=== PATIENT | male | born 1960 | race African-American/Black ===

== ENCOUNTER 2016-12-22 10:59 | Emergency (ER) | payer OTHER ==
[2016-12-22 11:05] VITALS: BP 172/99
--- NOTE | 2016-12-22 11:27 | ER Document Report ---
HPI - HPI Patient complains to provider of: burn to right volar forearm Onset: Just prior to arrival Quality of pain: Achy Pain Level: 4 Context: 56-year-old diabetic patient is concerned that the second degree burn in his right frontal forearm has not healed yet. He is keeping it dry. No fever or chills no pus or redness. Associated Symptoms: None Exacerbated by: Denies Relieved by: Denies Similar symptoms previously: No Recently seen / treated by doctor: No - ROS ROS below otherwise negative: Yes Systems Reviewed and Negative: Yes All other systems reviewed and negative - CARDIOVASCULAR Cardiovascular: DENIES: Chest pain - DERM Skin Color: Normal Past Medical History - General Information source: Patient - Social History Smoking Status: Never Smoker Chew tobacco use (# tins/day): No Frequency of alcohol use: Rare Drug Abuse: None Lives with: Family Family History: CAD, Hypertension Patient has suicidal ideation: No Patient has homicidal ideation: No - Past Medical History Cardiac Medical History: Reports: Hx Heart Attack, Hx Hypercholesterolemia, Hx Hypertension Pulmonary Medical History: Reports: Hx Asthma Neurological Medical History: Reports: Hx Seizures - hypoglycemia Endocrine Medical History: Reports: Hx Diabetes Mellitus Type 2 Renal/ Medical History: Denies: Hx Peritoneal Dialysis Musculoskeltal Medical History: Reports Hx Arthritis Past Surgical History: Reports: Hx Orthopedic Surgery - left knee and right knee - Immunizations Hx Diphtheria, Pertussis, Tetanus Vaccination: No Vertical Provider Document - CONSTITUTIONAL Agree With Documented VS: Yes Exam Limitations: No Limitations - INFECTION CONTROL TRAVEL OUTSIDE OF THE [place] IN LAST 30 DAYS: No - HEENT HEENT: Normocephalic - NECK Neck: Supple - RESPIRATORY O2 Sat by Pulse Oximetry: 99 - MUSCULOSKELETAL/EXTREMETIES Musculoskeletal/Extremeties: MAEW, FROM, Tender - Wound see below - NEURO Level of Consciousness: Awake, Alert, Appropriate - DERM Adult Front & Back Diagram: 1 - 3 x 5 healing, dry, 2nd degree burn , no lymphangitis Course - Vital Signs Vital signs: Temp Pulse Resp BP Pulse Ox 98.6 F 73 18 172/99 H 99 12/22/16 11:04 12/22/16 11:04 12/22/16 11:04 12/22/16 11:04 12/22/16 11:04 Discharge - Discharge Clinical Impression: healing right volar forearm burn Condition: Good Disposition: HOME, SELF-CARE Instructions: [facility] ([facility]) Additional Instructions: Use Vaseline to keep the wound moist non stick dressing to er any pus or increased red or fever Please complete the patient satisfaction survey if you get one, and return it.. If you do not receive a survey, then you can go to the [facility] website, [email or web address] and place your comments about your very good care. Thank you very much. It was a pleasure being your medical provider today.
== END 2016-12-22 11:35 | disposition home or self-care (01) ==
LOC: ER 10:59
DX: T22.211D Burn of second degree of right forearm, subsequent encounter (principal); X19.XXXD Contact with other heat and hot substances, subsequent encounter; E11.9 Type 2 diabetes mellitus without complications; I25.2 Old myocardial infarction; I10 Essential (primary) hypertension; J45.909 Unspecified asthma, uncomplicated
CPT/HCPCS: 99283

== ENCOUNTER 2017-01-13 12:22 | Emergency (ER) | payer OTHER ==
[2017-01-13 12:39] VITALS: BP 148/76
[2017-01-13] MEDS ORDERED: ACETAMINOPHEN 325 MG TABLET PO ONE (12:54)
--- NOTE | 2017-01-13 12:55 | ER Document Report ---
ED Hand/Wrist Injury - General Chief Complaint: Hand Injury Stated Complaint: LEFT HAND INJURY Time Seen by Provider: 01/13/17 12:44 Mode of Arrival: Ambulatory Information source: Patient TRAVEL OUTSIDE OF THE [place] IN LAST 30 DAYS: No - HPI Injury to: Hand Onset: Other - 2 days Where: [facility] Timing: Still present Quality of pain: Burning, Sharp, Throbbing Severity: Severe Pain Level: 5 Context: Blow - Punched a wall - Related Data Allergies/Adverse Reactions: ibuprofen Allergy (Verified 12/22/16 11:04) Past Medical History - General Information source: Patient - Social History Smoking Status: Never Smoker Cigarette use (# per day): No Chew tobacco use (# tins/day): No Smoking Education Provided: No Frequency of alcohol use: Occasional Drug Abuse: Marijuana Occupation: disabled Lives with: Family Family History: Arthritis, CAD, COPD, CVA, DM, Hyperlipidemia, Hypertension, Malignancy, Thyroid Disfunction - Past Medical History Cardiac Medical History: Reports: Hx Heart Attack, Hx Hypercholesterolemia, Hx Hypertension Pulmonary Medical History: Reports: Hx Asthma, Hx Bronchitis Neurological Medical History: Reports: Hx Seizures - hypoglycemia Endocrine Medical History: Reports: Hx Diabetes Mellitus Type 2 Renal/ Medical History: Reports: None Malignancy Medical History: Reports None GI Medical History: Reports: None Musculoskeltal Medical History: Reports Hx Arthritis, Reports Hx Musculoskeletal Deformity, Reports Hx Musculoskeletal Trauma Skin Medical History: Reports Hx MRSA Psychiatric Medical History: Reports: Hx Anxiety, Hx Depression, Hx Post Traumatic Stress Disorder Traumatic Medical History: Reports: Hx Fractures - Knee cap and fingers Infectious Medical History: Reports: Hx MRSA Past Surgical History: Reports: Hx Orthopedic Surgery - left knee and right knee and ankle surgery MRSA in the knee - Immunizations Hx Diphtheria, Pertussis, Tetanus Vaccination: No Review of Systems - Review of Systems Constitutional: No symptoms reported EENT: No symptoms reported Cardiovascular: No symptoms reported Respiratory: No symptoms reported Gastrointestinal: No symptoms reported Genitourinary: No symptoms reported Male Genitourinary: No symptoms reported Musculoskeletal: Other - pain and swelling left hand Skin: No symptoms reported Hematologic/Lymphatic: No symptoms reported Neurological/Psychological: No symptoms reported Physical Exam - Vital signs Vitals: Temp Pulse Resp BP Pulse Ox 98.0 F 75 18 148/76 H 98 01/13/17 12:37 01/13/17 12:37 01/13/17 12:37 01/13/17 12:37 01/13/17 12:37 Interpretation: Normal - General General appearance: Appears well, Alert - HEENT Head: Normocephalic, Atraumatic Eyes: Normal Pupils: PERRL - Respiratory Respiratory status: No respiratory distress Chest status: Nontender Breath sounds: Normal Chest palpation: Normal - Cardiovascular Rhythm: Regular Heart sounds: Normal auscultation Murmur: No - Abdominal Inspection: Normal Distension: No distension Bowel sounds: Normal Tenderness: Nontender Organomegaly: No organomegaly - Back Back: Normal, Nontender - Extremities General upper extremity: Normal color, Normal ROM, Normal temperature General lower extremity: Normal inspection, Nontender, Normal color, Normal ROM , Normal temperature, Normal weight bearing. No: Clarence's sign Hand: Tender, No evidence of human bite, No evidence of FB, Swelling - Neurological Neuro grossly intact: Yes Cognition: Normal Orientation: AAOx4 Farhaan Coma Scale Eye Opening: Spontaneous [place] Coma Scale Verbal: Oriented [place] Coma Scale Motor: Obeys Commands Farhana Coma Scale Total: 15 Speech: Normal Motor strength normal: LUE, RUE, LLE, RLE Sensory: Normal - Psychological Associated symptoms: Normal affect, Normal mood - Skin Skin Temperature: Warm Skin Moisture: Dry Skin Color: Normal Course - Re-evaluation Re-evalutation: 01/13/17 13:53 X-rays with patient and written report given to patient for follow-up with primary doctor. - Vital Signs Vital signs: Temp Pulse Resp BP Pulse Ox 98.0 F 75 18 148/76 H 98 01/13/17 12:37 01/13/17 12:37 01/13/17 12:37 01/13/17 12:37 01/13/17 12:37 - Diagnostic Test Radiology reviewed: Image reviewed, Reports reviewed Discharge - Discharge Clinical Impression: Contusion of left hand including fingers Qualifiers: Encounter type: initial encounter Qualified Code(s): S60.222A - Contusion of left hand, initial encounter; S60.00XA - Contusion of unspecified finger without damage to nail, initial encounter Condition: Stable Disposition: HOME, SELF-CARE Additional Instructions: CONTUSION: Your injury has resulted in a contusion -- a crushing of the deep tissues. No injury to important structures was detected during the physician's exam. Contusions vary in the amount of pain they cause, and in the length of time required for healing. Typically, the area will become bruised, and will remain painful to touch for two or three weeks. However, most patients are back to working and playing within a few days. After the initial period of rest and cold-packs, your symptoms (together with the doctor's recommendations) will determine how rapidly you can get back to full activity. Usually this means "do what feels okay, but don't do things that hurt." If re-examination was recommended, it's important to follow up as instructed. Call the doctor or return any time if pain increases, if swelling becomes severe, if you develop numbness or weakness in an injured extremity, or if any other alarming symptoms occur. USE OF TYLENOL (ACETAMINOPHEN): Acetaminophen may be taken for pain relief or fever control. It's much safer than aspirin, offering a wider range of "safe" dosages. It is safe during . Some brand names are Tylenol, Panadol, Datril, Anacin 3, Tempra, and Liquiprin. Acetaminophen can be repeated every four hours. The following are maximum recommended dosages: WEIGHT Dose Drops Elixir Chewable( 80mg) (LBS.) drprs=droppers tsp=teaspoon 6 40 mg 0.4 ml (1/2) 6-11 80 mg 0.8 ml (full) tsp 1 tab 12-16 120 mg 1 1/2 drprs 3/4 tsp 1 1/2 tabs 17-23 160 mg 2 drprs 1 tsp 2 tabs 24-30 240 mg 3 drprs 1 1/2 tsp 3 tabs 30-35 320 mg 2 tsp 4 tabs 36-41 360 mg 2 1/4 tsp 4 1/2 tabs 42-47 400 mg 2 1/2 tsp 5 tabs 48-53 480 mg 3 tsp 6 tabs 54-59 520 mg 3 1/4 tsp 6 1/2 tabs 60-64 560 mg 3 1/2 tsp 7 tabs 65-70 600 mg 3 3/4 tsp 7 1/2 tabs 71-76 640 mg 4 tsp 8 tabs 77-82 720 mg 4 1/2 tsp 9 tabs 83-88 800 mg 5 tsp 10 tabs >89 pounds or adults 650 mg to 900 mg Acetaminophen can be repeated every four hours. Maximum dose not to exceed 4000 mg a day. These maximum recommended dosages are slightly higher than the dosages written on the product container, but these dosages are very safe and below the toxic dosage for acetaminophen. ICE & ELEVATION: Apply ice packs frequently against the painful area. Many different schedules are recommended, such as "20 minutes on, 20 minutes off" or "one hour ice, two hours rest." If you need to work, you may need to go longer between ice treatments. You should plan to have the area ice packed AT LEAST one- fourth of the time. The ice should be applied over the wrap, tape, or splint, or over a layer of cloth -- not directly against the skin. Some ice bags have a built-in cloth and can be put directly on the skin. Your injured part should be elevated as much as possible over the next 48 hours. Try to keep the injury above the level of the heart. Avoid use of the injured area. Elevation and rest will decrease the swelling. FOLLOW-UP CARE: If you have been referred to a physician for follow-up care, call the physician s office for an appointment as you were instructed or within the next two days. If you experience worsening or a significant change in your symptoms, notify the physician immediately or return to the Emergency Department at any time for re-evaluation. Forms: Elevated Blood Pressure, Smoking Cessation Education Referrals: RAJ MCCORMACK MD [Primary Care Provider] - Follow up as needed DELMA DE PAZ DO [ACTIVE STAFF] - Follow up as needed
--- NOTE | 2017-01-13 13:16 | RADIOLOGY REPORT (SQ) ---
EXAM DESCRIPTION: HAND LEFT 3 VIEWS COMPLETED DATE/TIME: 01/13/2017 1:07 pm REASON FOR STUDY: punched wall COMPARISON: None. EXAM PARAMETERS: NUMBER OF VIEWS: Three views. TECHNIQUE: AP, lateral and oblique radiographic images acquired of the left hand. LIMITATIONS: None. FINDINGS: MINERALIZATION: Normal. BONES: No acute fracture or dislocation. No worrisome bone lesions. JOINTS: Fusion of the 4th DIP joint which may be posttraumatic or developmental. Articulations other chapman grossly maintained. SOFT TISSUES: No soft tissue swelling. No foreign body. OTHER: No other significant finding. IMPRESSION: NO RADIOGRAPHIC EVIDENCE OF ACUTE INJURY. TECHNICAL DOCUMENTATION: JOB ID: [id number] [email or web address]- All Rights Reserved
== END 2017-01-13 13:53 | disposition home or self-care (01) ==
LOC: ER 12:22
DX: S60.222A Contusion of left hand, initial encounter (principal); S60.00XA Contusion of unspecified finger without damage to nail, initial encounter; W22.01XA Walked into wall, initial encounter
CPT/HCPCS: 99283

== ENCOUNTER 2017-04-14 19:45 | Emergency (ER) | payer OTHER ==
--- NOTE | 2017-04-14 20:06 | ER Document Report ---
ED Medical Screen (RME) - General Chief Complaint: Shortness Of Breath Stated Complaint: SHORTNESS OF BREATH Time Seen by Provider: 04/14/17 20:05 Notes: Patient reports 2 days of heart palpitations headaches and elevated blood sugar with weakness. He denies any previous history of coronary artery disease. He states at one time he was told that he is borderline diabetic and was taking insulin but after losing weight he no longer required medication. TRAVEL OUTSIDE OF THE [place] IN LAST 30 DAYS: No - Related Data Allergies/Adverse Reactions: ibuprofen Allergy (Verified 12/22/16 11:04) Past Medical History - Past Medical History Cardiac Medical History: Reports: Hx Heart Attack, Hx Hypercholesterolemia, Hx Hypertension Pulmonary Medical History: Reports: Hx Asthma, Hx Bronchitis Neurological Medical History: Reports: Hx Seizures - hypoglycemia Endocrine Medical History: Reports: Hx Diabetes Mellitus Type 2 Renal/ Medical History: Denies: Hx Peritoneal Dialysis Musculoskeltal Medical History: Reports Hx Arthritis, Reports Hx Musculoskeletal Deformity, Reports Hx Musculoskeletal Trauma Skin Medical History: Reports Hx MRSA Psychiatric Medical History: Reports: Hx Anxiety, Hx Depression, Hx Post Traumatic Stress Disorder Traumatic Medical History: Reports: Hx Fractures - Knee cap and fingers Infectious Medical History: Reports: Hx MRSA Past Surgical History: Reports: Hx Orthopedic Surgery - left knee and right knee and ankle surgery MRSA in the knee - Immunizations Hx Diphtheria, Pertussis, Tetanus Vaccination: No Physical Exam - Vital signs Vitals: Temp Pulse Resp BP Pulse Ox 98.1 F 88 14 163/93 H 97 04/14/17 19:56 04/14/17 19:56 04/14/17 19:56 04/14/17 19:56 04/14/17 19:56 Course - Vital Signs Vital signs: Temp Pulse Resp BP Pulse Ox 98.1 F 88 14 163/93 H 97 04/14/17 19:56 04/14/17 19:56 04/14/17 19:56 04/14/17 19:56 04/14/17 19:56
[2017-04-14 20:47] LABS: ABSOLUTE BASOPHILS # (AUTO) 0.1 10^3/uL (0.0-0.2); ABSOLUTE EOSINOPHILS # (AUTO) 0.2 10^3/uL (0.0-0.6); ABSOLUTE LYMPHOCYTES (AUTO) 2.1 10^3/uL (0.5-4.7); ABSOLUTE NEUT (AUTO) 7.2 10^3/uL (1.7-8.2); BASOPHILS % (AUTO) 0.5 % (0-2); EOSINOPHILS % (AUTO) 1.8 % (0-6); HEMATOCRIT 38.9 % (37.9-51.0); HEMOGLOBIN 13.1 g/dL (13.5-17.0); HGB HCT DIFFERENCE 0.4; LYMPHOCYTES % (AUTO) 19.6 % (13-45); MEAN CORPUSCULAR HEMOGLOBIN 30.2 pg (27.0-33.4); MEAN CORPUSCULAR HGB CONC 33.7 g/dL (32.0-36.0); MEAN CORPUSCULAR VOLUME 90 fl (80-97); MONOCYTES % (AUTO) 9.3 % (3-13); RED BLOOD COUNT 4.33 10^6/uL (4.35-5.55); RED CELL DISTRIBUTION WIDTH 13.5 % (11.5-14.0); SEGMENTED NEUTROPHILS % (AUTO) 68.8 % (42-78); WHITE BLOOD COUNT 10.5 10^3/uL (4.0-10.5)
[2017-04-14 21:11] LABS: ALANINE AMINOTRANSFERASE 32 U/L (21-72); ALBUMIN 4.6 g/dL (3.5-5.0); ALKALINE PHOSPHATASE 87 U/L (38-126); ANION GAP 13 (5-19); ASPARTATE AMINO TRANSFERASE 28 U/L (17-59); BILIRUBIN,DIRECT 0.3 mg/dL (0.0-0.4); BILIRUBIN,TOTAL 0.8 mg/dL (0.2-1.3); BLOOD UREA NITROGEN 16 mg/dL (7-20); CALCIUM 10.3 mg/dL (8.4-10.2); CARBON DIOXIDE 26 mmol/L (22-30); CHLORIDE 102 mmol/L (98-107); CREATININE RESULT 1.26 mg/dL (0.52-1.25); GLUCOSE 105 mg/dL (75-110); POTASSIUM 3.9 mmol/L (3.6-5.0); SODIUM 141.3 mmol/L (137-145); TOTAL PROTEIN 7.7 g/dL (6.3-8.2)
--- NOTE | 2017-04-14 21:46 | ER Document Report ---
ED General - General Chief Complaint: Shortness Of Breath Stated Complaint: SHORTNESS OF BREATH Time Seen by Provider: 04/14/17 20:05 Mode of Arrival: Ambulatory Information source: Patient TRAVEL OUTSIDE OF THE [place] IN LAST 30 DAYS: No - HPI Patient complains to provider of: Elevated blood sugar with headache and palpitations Onset: Yesterday Quality of pain: Achy Severity: Mild Pain Level: 1 Notes: Patient is a 56-year-old male with a history of asthma, arthritis and Hebrew Westby syndrome, he has a previous history of diabetes, was never medicated but was able to lose weight and control his blood sugars through diet and exercise, reports increased stress level recently, not feeling very well yesterday with headache and palpitations, so he took his blood sugar today and it was 205, he took it approximately 5 minutes later and it was 220 so he came to the emergency room for evaluation - Related Data Allergies/Adverse Reactions: ibuprofen Allergy (Verified 12/22/16 11:04) Past Medical History - General Information source: Patient - Social History Smoking Status: Never Smoker Frequency of alcohol use: Occasional Drug Abuse: None Family History: Arthritis, CAD, COPD, CVA, DM, Hyperlipidemia, Hypertension, Malignancy, Thyroid Disfunction Patient has suicidal ideation: No Patient has homicidal ideation: No - Past Medical History Cardiac Medical History: Reports: Hx Heart Attack, Hx Hypercholesterolemia, Hx Hypertension Pulmonary Medical History: Reports: Hx Asthma, Hx Bronchitis Neurological Medical History: Reports: Hx Seizures - hypoglycemia Endocrine Medical History: Reports: Hx Diabetes Mellitus Type 2 Renal/ Medical History: Denies: Hx Peritoneal Dialysis Musculoskeltal Medical History: Reports Hx Arthritis, Reports Hx Musculoskeletal Deformity, Reports Hx Musculoskeletal Trauma Skin Medical History: Reports Hx MRSA Psychiatric Medical History: Reports: Hx Anxiety, Hx Depression, Hx Post Traumatic Stress Disorder Traumatic Medical History: Reports: Hx Fractures - Knee cap and fingers Infectious Medical History: Reports: Hx MRSA Past Surgical History: Reports: Hx Orthopedic Surgery - left knee and right knee and ankle surgery MRSA in the knee - Immunizations Hx Diphtheria, Pertussis, Tetanus Vaccination: No Review of Systems - Review of Systems Constitutional: No symptoms reported EENT: No symptoms reported Cardiovascular: Palpitations Respiratory: No symptoms reported Gastrointestinal: No symptoms reported Genitourinary: No symptoms reported Male Genitourinary: No symptoms reported Musculoskeletal: No symptoms reported Skin: No symptoms reported Hematologic/Lymphatic: No symptoms reported Neurological/Psychological: Headaches -: Yes All other systems reviewed and negative Physical Exam - Vital signs Vitals: Temp Pulse Resp BP Pulse Ox 98.1 F 88 14 163/93 H 97 04/14/17 19:56 04/14/17 19:56 04/14/17 19:56 04/14/17 19:56 04/14/17 19:56 Interpretation: Normal - General General appearance: Appears well, Alert - HEENT Head: Normocephalic, Atraumatic Eyes: Normal Pupils: PERRL - Respiratory Respiratory status: No respiratory distress Chest status: Nontender Breath sounds: Normal Chest palpation: Normal - Cardiovascular Rhythm: Regular Heart sounds: Normal auscultation Murmur: No - Abdominal Inspection: Normal Distension: No distension Bowel sounds: Normal Tenderness: Nontender Organomegaly: No organomegaly - Back Back: Normal, Nontender - Extremities General upper extremity: Normal inspection, Nontender, Normal color, Normal ROM , Normal temperature General lower extremity: Normal inspection, Nontender, Normal color, Normal ROM , Normal temperature, Normal weight bearing. No: Clarence's sign - Neurological Neuro grossly intact: Yes Cognition: Normal Orientation: AAOx4 Farhana Coma Scale Eye Opening: Spontaneous [place] Coma Scale Verbal: Oriented Farhana Coma Scale Motor: Obeys Commands [place] Coma Scale Total: 15 Speech: Normal Motor strength normal: LUE, RUE, LLE, RLE Sensory: Normal - Psychological Associated symptoms: Normal affect, Normal mood - Skin Skin Temperature: Warm Skin Moisture: Dry Skin Color: Normal Course - Re-evaluation Re-evalutation: 04/15/17 01:29 Laboratory findings were discussed with patient at bedside which are unremarkable with a glucose of 105, patient was advised to follow-up with his primary care provider in 1-2 days or return if symptoms worsen, I did offer to treat patient's headache while in the emergency room but he stated that he will take Tylenol when he gets home, patient and at bedside acknowledge understanding and agreement with this plan - Vital Signs Vital signs: Temp Pulse Resp BP Pulse Ox 98.1 F 76 18 140/95 H 98 04/14/17 19:56 04/14/17 21:58 04/14/17 21:58 04/14/17 21:58 04/14/17 21:58 - Laboratory Result Diagrams: 04/14/17 20:32 04/14/17 20:32 Laboratory results interpreted by me: 04/14/17 04/14/17 20:32 20:32 RBC 4.33 L Hgb 13.1 L Creatinine 1.26 H Est GFR (Non-Af Amer) 59 L Calcium 10.3 H - EKG Interpretation by Me EKG shows normal: Sinus rhythm Rate: Normal Rhythm: NSR Discharge - Discharge Clinical Impression: Palpitations Head ache Qualifiers: Headache type: unspecified Headache chronicity pattern: acute headache Intractability: not intractable Qualified Code(s): R51 - Headache Condition: Stable Disposition: HOME, SELF-CARE Instructions: Headache ([facility]), Hyperglycemia ([facility]), Palpitations (Irregular or Rapid Heartrate) ([facility]) Additional Instructions: Follow up with your primary care provider in one to 2 days. Return to the emergency room immediately if symptoms worsen or any additional concerns.
[2017-04-14 22:00] VITALS: BP 140/95
--- NOTE | 2017-04-14 23:20 | EKG REPORT ---
SEVERITY:- NORMAL ECG - SINUS RHYTHM : Confirmed by: Shmuel Whitney 14-Apr-2017 23:19:47
== END 2017-04-14 21:58 | disposition home or self-care (01) ==
LOC: ER 19:45
DX: R51 Headache (principal); R00.2 Palpitations; J45.909 Unspecified asthma, uncomplicated; E11.9 Type 2 diabetes mellitus without complications; I25.2 Old myocardial infarction; I10 Essential (primary) hypertension
CPT/HCPCS: 36415; 80053; 84484; 85025; 93005; 93010; 99285

== ENCOUNTER 2017-10-03 15:42 | Emergency (ER) | payer OTHER ==
--- NOTE | 2017-10-03 16:52 | ER Document Report ---
ED Medical Screen (RME) - General Chief Complaint: Fall Stated Complaint: FOOT PAIN Time Seen by Provider: 10/03/17 16:52 Mode of Arrival: Ambulatory Information source: Patient Notes: This is a 57-year-old man with a history of hypertension who presents to the emergency room with complaints of left elbow pain for the past week. Patient states it started slowly a few weeks ago and is just gotten worse. He does lift weights and is fairly active. He denies any fever, chills, nausea, vomiting or recent illnesses. He also has a history of pleurisy and states he has had some pain with inspiration and a little bit of discomfort on the right chest wall. He denies any recent exertional shortness of breath or exertional chest pain. He states it only hurts if he moves his torso or takes in a deep breath. The last thing that the patient mentions is that in the bottom of his right foot, he feels a lump and a sensation of a foreign body. He has had this for the last month or 2. He is denied any known injury to the foot and states that it gradually come on. TRAVEL OUTSIDE OF THE [place] IN LAST 30 DAYS: No - HPI Onset: Last week Onset/Duration: Gradual Quality of pain: Dull Severity: Moderate Pain Level: 2 Associated Symptoms: denies: Chest pain, Fever, Shortness of breath Exacerbated by: Denies Relieved by: Denies Similar symptoms previously: Yes Recently seen / treated by doctor: Yes - Related Data Smoking: Non-smoker Frequency of alcohol use: None Drug Abuse: None Allergies/Adverse Reactions: ibuprofen Allergy (Verified 10/03/17 15:59) Past Medical History - General Information source: Patient - Social History Cigarette use (# per day): No Chew tobacco use (# tins/day): No Frequency of alcohol use: Rare Drug Abuse: None Lives with: Family Family history: None - Past Medical History Cardiac Medical History: Reports: Hx Heart Attack, Hx Hypercholesterolemia, Hx Hypertension Pulmonary Medical History: Reports: Hx Asthma, Hx Bronchitis Neurological Medical History: Reports: Hx Seizures - hypoglycemia Endocrine Medical History: Reports: Hx Diabetes Mellitus Type 2 Renal/ Medical History: Denies: Hx Peritoneal Dialysis Musculoskeltal Medical History: Reports Hx Arthritis, Reports Hx Musculoskeletal Deformity, Reports Hx Musculoskeletal Trauma Skin Medical History: Reports Hx MRSA Psychiatric Medical History: Reports: Hx Anxiety, Hx Depression, Hx Post Traumatic Stress Disorder Traumatic Medical History: Reports: Hx Fractures - Knee cap and fingers Infectious Medical History: Reports: Hx MRSA Past Surgical History: Reports: Hx Orthopedic Surgery - left knee and right knee and ankle surgery MRSA in the knee - Immunizations Hx Diphtheria, Pertussis, Tetanus Vaccination: No Review of Systems - Review of Systems Notes: Review of systems: Constitutional: Denies fever, chills. EENT: Denies ear pain, sinus tenderness, throat pain, throat swelling. Cardiovascular: Denies chest pain, palpitations, dyspnea or edema. Respiratory: Denies wheezing, cough, hemoptysis. Abdomen: Denies abdominal pain, nausea, vomiting, diarrhea. Denies BRBPR or melena. Genitourinary: Denies dysuria, pyuria, hematuria, flank pain. Musculoskeletal: See H&P Neurologic: Denies headache, photophobia, neck stiffness, weakness. Denies loss of bowel or bladder function. Denies saddle anesthesia. Skin: Denies rash, lesions. Constitutional: denies: Fever Physical Exam - Vital signs Vitals: Temp Pulse Resp BP Pulse Ox 97.4 F 66 16 131/83 H 97 10/03/17 16:22 18 16:22 18 16:22 10/03/17 16:22 10/03/17 16:22 Notes: Physical exam: GENERAL: HEAD: Atraumatic, normocephalic. EYES: Pupils equal round and reactive to light, extraocular movements intact, sclera anicteric, conjunctiva are normal. ENT: TMs normal, nares patent, oropharynx clear without exudates. Moist mucous membranes. NECK: Normal range of motion, supple without obvious mass or JVD. LUNGS: Breath sounds clear to auscultation bilaterally and equal. No wheezes rales or rhonchi. Mild chest wall tenderness to palpation on the right side over the ribs. HEART: Regular rate and rhythm without murmurs, rubs or gallops. ABDOMEN: Soft, normoactive bowel sounds. No tenderness to palpation. No guarding, no rebound. No masses appreciated. EXTREMITIES: Patient is normal inspection of the left elbow. He does have point tenderness over the olecranon and in the ulnar groove. He has good intrinsic muscle use of the fingers and good sensation over the fifth digit. There is no erythema or warmth over the elbow joint. Just tenderness with range of motion and palpation. To the right foot, the patient does appear to have start of a callus on the bottom of the right midfoot. There is no erythema, pus, warmth or evidence of infection. NEUROLOGICAL: Cranial nerves II through XII grossly intact. Normal speech, moving all extremities. PSYCH: Normal mood, normal affect. SKIN: Warm, Dry, normal turgor, no rashes or lesions noted. Course - Re-evaluation Re-evalutation: 10/03/17 18:28 At the time of discharge, I have instructed the patient at the bedside with regards to return precautions and follow-up recommendations. The opportunity for questions was given. The patient has verbalized understanding of these instructions and the need for follow-up. - Vital Signs Vital signs: Temp Pulse Resp BP Pulse Ox 97.4 F 66 16 131/83 H 97 10/03/17 16:22 18 16:22 18 16:22 10/03/17 16:22 10/03/17 16:22 - Diagnostic Test Radiology reviewed: Image reviewed, Reports reviewed - Chest x-ray shows no infiltrates. Left elbow shows some arthritis, otherwise no acute issues. Foot shows no foreign body. - EKG Interpretation by Me Rate: Normal Rhythm: NSR - EKG shows normal sinus rhythm with a ventricular rate of 72, no acute ST-T wave changes Doctor's Discharge - Discharge Clinical Impression: Medial epicondylitis, Pleurisy Condition: Stable Disposition: HOME, SELF-CARE Additional Instructions: Note: As far as the elbow pain, there does appear to be some inflammation on the inner aspect of the elbow consistent with medial epicondylitis. We are treating you with an anti-inflammatory medicine and sometimes orthopedic doctor will inject the joint to reduce the inflammation. I would like you to follow- up with an orthopedic doctor. You can follow-up with an orthopedic doctor at the [facility], or I have provided the number for an orthopedic doctor affiliated with the hospital As far as the chest wall pain, this is consistent with pleurisy and your chest x -ray looked quite good. The medicine used to treat this as an anti- inflammatory medicine and the same one that we are giving you for the elbow. As far as the foot, there is no evidence of foreign bodies. A callus can often grow in causing a sensation of a foreign body. I would follow-up with a foot doctor (virtual assistant for advertisers) as a will sometimes surgically remove these if necessary. Otherwise, there is no evidence of infection and the x-ray looked relatively good. Take the Solu-Medrol as prescribed. The pain medicine you're taking prescribed as a narcotic. There are several important things you should know about this medicine: 1. This medicine contains Tylenol: It is important that you do not take Tylenol (or acetaminophen) while on this medicine. Tylenol is metabolized by the liver and taking too much Tylenol (acetaminophen) can lay to liver damage and even liver failure. 2. Taking narcotics for too long can lead to physical and mental dependence. Take this medicine only if really needed and in the lowest quantity to achieve pain relief. 3. Do not drink alcohol while on this medicine. Alcohol interacts with narcotics and the combination can be dangerous. 4. Do not drive or operate machinery while on this medicine. 5. Narcotics do cause constipation, so drink plenty of fluids and daily stool softeners. Prescriptions: Methylprednisolone [Medrol Dosepack (4 mg/Tab) 21 Tab/Dosepak] 4 mg PO ASDIR PRN #21 tab.ds.pk PRN Reason: Oxycodone HCl/Acetaminophen [Percocet 5-325 mg Tablet] 1 - 2 tab PO ASDIR PRN # 15 tablet PRN Reason: Referrals: DELMA DE PAZ DO [ACTIVE STAFF] - Follow up as needed (This is the number the orthopedic doctor)
--- NOTE | 2017-10-03 17:31 | RADIOLOGY REPORT (SQ) ---
EXAM DESCRIPTION: CHEST PA/LAT COMPLETED DATE/TIME: 10/03/2017 5:23 pm REASON FOR STUDY: pleuritic chest pain COMPARISON: 01/21/2015 EXAM PARAMETERS: NUMBER OF VIEWS: two views TECHNIQUE: Digital Frontal and Lateral radiographic views of the chest acquired. RADIATION DOSE: NA LIMITATIONS: none FINDINGS: LUNGS AND PLEURA: No opacities, masses or pneumothorax. No pleural effusion. MEDIASTINUM AND HILAR STRUCTURES: No masses or contour abnormalities. HEART AND VASCULAR STRUCTURES: Heart normal size. No evidence for failure. BONES: No acute findings. HARDWARE: None in the chest. OTHER: No other significant finding. IMPRESSION: NO SIGNIFICANT RADIOGRAPHIC FINDING IN THE CHEST. TECHNICAL DOCUMENTATION: JOB ID: [id number] [employer]- All Rights Reserved
--- NOTE | 2017-10-03 17:32 | RADIOLOGY REPORT (SQ) ---
EXAM DESCRIPTION: ELBOW LEFT AP/LATERAL COMPLETED DATE/TIME: 10/03/2017 5:23 pm REASON FOR STUDY: left elbow pain COMPARISON: None. NUMBER OF VIEWS: Four views. TECHNIQUE: AP, lateral, and both oblique radiographic images acquired of the left elbow. LIMITATIONS: None. FINDINGS: MINERALIZATION: Normal. BONES: No acute fracture or dislocation. No worrisome bone lesions. Olecranon enthesopathy. JOINT: No effusion. SOFT TISSUES: No soft tissue swelling. No foreign body. OTHER: No other significant finding. IMPRESSION: OLECRANON ENTHESOPATHY. NO ACUTE OSSEOUS ABNORMALITY. TECHNICAL DOCUMENTATION: JOB ID: [id number] [employer]- All Rights Reserved
--- NOTE | 2017-10-03 17:45 | RADIOLOGY REPORT (SQ) ---
EXAM DESCRIPTION: FOOT RIGHT 2 VIEWS COMPLETED DATE/TIME: 10/03/2017 5:23 pm REASON FOR STUDY: plantar swelling, r/o FB COMPARISON: None. NUMBER OF VIEWS: Three views. TECHNIQUE: AP, lateral and oblique radiographic images acquired of the right foot. LIMITATIONS: None. FINDINGS: MINERALIZATION: Normal. BONES: No acute fracture or dislocation. No worrisome bone lesions. Minimal enthesopathy at the ins ertion of the calculus tendon. JOINTS: Mild to moderate osteoarthritis of the midfoot and tibiotalar joint space. SOFT TISSUES: No soft tissue swelling. No foreign body. OTHER: No other significant finding. IMPRESSION: DEGENERATIVE CHANGE ABOVE WITHOUT ACUTE OSSEOUS ABNORMALITY. TECHNICAL DOCUMENTATION: JOB ID: [id number] [employer]- All Rights Reserved
[2017-10-03 18:38] VITALS: BP 135/80
--- NOTE | 2017-10-04 09:56 | EKG REPORT ---
SEVERITY:- NORMAL ECG - SINUS RHYTHM : Confirmed by: Shmuel Whitney 04-Oct-2017 09:55:12
== END 2017-10-03 18:40 | disposition home or self-care (01) ==
LOC: ER 15:42
DX: M77.02 Medial epicondylitis, left elbow (principal); R09.1 Pleurisy; M25.522 Pain in left elbow; M79.671 Pain in right foot; R07.1 Chest pain on breathing; I25.2 Old myocardial infarction; E78.00 Pure hypercholesterolemia, unspecified; I10 Essential (primary) hypertension; X50.0XXA Overexertion from strenuous movement or load, initial encounter
CPT/HCPCS: 71046; 93005; 93010; 99284

== ENCOUNTER 2017-12-28 17:54 | Emergency (ER) | payer OTHER ==
[2017-12-28 18:00] VITALS: BP 141/81
--- NOTE | 2017-12-28 19:09 | RADIOLOGY REPORT (SQ) ---
EXAM DESCRIPTION: FOOT RIGHT COMPLETE COMPLETED DATE/TIME: 12/28/2017 6:59 pm REASON FOR STUDY: pain plantar surface mid foot COMPARISON: None. NUMBER OF VIEWS: Three views. TECHNIQUE: AP, lateral and oblique without weight bearing radiographic images acquired of the right foot. LIMITATIONS: None. FINDINGS: MINERALIZATION: Normal. BONES: No acute fracture or dislocation. No worrisome bone lesions. No significant osteophytes. JOINTS: No erosions. No jeane-articular osteopenia. No chondrocalcinosis. SOFT TISSUES: No swelling. No calcifications. OTHER: No other significant finding. IMPRESSION: NEGATIVE STUDY OF THE RIGHT FOOT. NO EXPLANATION FOR PAIN. TECHNICAL DOCUMENTATION: JOB ID: [id number] [employer]- All Rights Reserved Reading location - IP/workstation name: [email or web address]
--- NOTE | 2017-12-28 19:22 | ER Document Report ---
ED Extremity Problem, Lower - General Chief Complaint: Foot Pain Stated Complaint: FOOT PAIN Time Seen by Provider: 12/28/17 18:13 Mode of Arrival: Ambulatory Information source: Patient Notes: 57-year-old male presents to ED for left foot pain for several months. He states several months ago 1 of his children broke a plate on the floor he stepped on it and he thought he took all the glass out and he thinks he still has a piece of glass in his foot. He states he has been seen multiple times for this pain in his foot and nobody has been get out what is wrong with his foot. Patient has a cardiac history as well as a history with asthma bronchitis seizures hypoglycemia arthritis and anxiety depression and PTSD TRAVEL OUTSIDE OF THE [place] IN LAST 30 DAYS: No - HPI Patient complains to provider of: Pain Location: Foot Occurred: Other - States for several months Where: Home Onset/Duration: Persistent Quality of pain: Sharp Severity: Moderate Pain Level: 4 Context: Other - Pain foot in the bottom of his foot he states for several months Recent injury: No Associated symptoms: Painful ambulation Exacerbated by: Movement, Walking Relieved by: Elevation - Related Data Allergies/Adverse Reactions: ibuprofen Allergy (Verified 10/03/17 15:59) Past Medical History - General Information source: Patient - Social History Smoking Status: Never Smoker Cigarette use (# per day): No Chew tobacco use (# tins/day): No Smoking Education Provided: No Frequency of alcohol use: None Drug Abuse: None Lives with: Family - I feel like sometimes Family History: Arthritis, CAD, COPD, CVA, DM, Hyperlipidemia, Hypertension, Malignancy, Thyroid Disfunction Patient has suicidal ideation: No Patient has homicidal ideation: No - Past Medical History Cardiac Medical History: Reports: Hx Heart Attack, Hx Hypercholesterolemia, Hx Hypertension Pulmonary Medical History: Reports: Hx Asthma, Hx Bronchitis EENT Medical History: Reports: None Neurological Medical History: Reports: Hx Seizures - hypoglycemia Endocrine Medical History: Reports: None Renal/ Medical History: Reports: None Malignancy Medical History: Reports None GI Medical History: Reports: None Musculoskeltal Medical History: Reports Hx Arthritis, Reports Hx Musculoskeletal Deformity, Reports Hx Musculoskeletal Trauma Skin Medical History: Reports Hx MRSA Psychiatric Medical History: Reports: Hx Anxiety, Hx Depression, Hx Post Traumatic Stress Disorder Traumatic Medical History: Reports: Hx Fractures - Knee cap and fingers Infectious Medical History: Reports: Hx MRSA Past Surgical History: Reports: Hx Orthopedic Surgery - left knee and right knee and ankle surgery MRSA in the knee - Immunizations Hx Diphtheria, Pertussis, Tetanus Vaccination: No Review of Systems - Review of Systems Constitutional: No symptoms reported EENT: No symptoms reported Cardiovascular: No symptoms reported Respiratory: No symptoms reported Gastrointestinal: No symptoms reported Genitourinary: No symptoms reported Male Genitourinary: No symptoms reported Musculoskeletal: Other - Left foot pain Skin: Other - Fungal infection to both feet lesion to the bottom of the left foot Hematologic/Lymphatic: No symptoms reported Neurological/Psychological: No symptoms reported -: Yes All other systems reviewed and negative Physical Exam - Vital signs Vitals: Temp Pulse Resp BP Pulse Ox 98.6 F 82 14 141/81 H 97 12/28/17 17:58 12/28/17 17:58 12/28/17 17:58 12/28/17 17:58 12/28/17 17:58 Interpretation: Normal - General General appearance: Appears well, Alert - HEENT Head: Normocephalic, Atraumatic Eyes: Normal Pupils: PERRL - Respiratory Respiratory status: No respiratory distress Chest status: Nontender Breath sounds: Normal Chest palpation: Normal - Cardiovascular Rhythm: Regular Heart sounds: Normal auscultation Murmur: No - Abdominal Inspection: Normal Distension: No distension Bowel sounds: Normal Tenderness: Nontender Organomegaly: No organomegaly - Back Back: Normal, Nontender - Extremities General upper extremity: Normal inspection, Nontender, Normal color, Normal ROM , Normal temperature General lower extremity: Normal inspection, Normal color, Normal ROM, Normal temperature. No: Clarence's sign Foot: Tender, No evidence of FB. No: Unable to bear weight - Painful ambulation due to questionable lesion to the anterior plantar surface of his foot - Neurological Neuro grossly intact: Yes Cognition: Normal Orientation: AAOx4 Diboll Coma Scale Eye Opening: Spontaneous Farhana Coma Scale Verbal: Oriented Farhana Coma Scale Motor: Obeys Commands Farhana Coma Scale Total: 15 Speech: Normal Motor strength normal: LUE, RUE, LLE, RLE Sensory: Normal - Psychological Associated symptoms: Normal affect, Normal mood - Skin Skin Temperature: Warm Skin Moisture: Dry Skin Color: Normal Course - Vital Signs Vital signs: Temp Pulse Resp BP Pulse Ox 98.6 F 82 14 141/81 H 97 12/28/17 17:58 12/28/17 17:58 12/28/17 17:58 12/28/17 17:58 12/28/17 17:58 - Diagnostic Test Radiology reviewed: Image reviewed, Reports reviewed Discharge - Discharge Clinical Impression: left foot pain plantar surface Condition: Stable Disposition: HOME, SELF-CARE Additional Instructions: You have been seen today for pain to the bottom of your left foot. You state this pain is been there for about 2 months or more. Your x-ray is negative for any foreign bodies or any bony abnormalities to the foot. Epsom Salt Soaks Soak the wound area in a container of warm epsom salt water. If you can't get the wound area into a bucket or brown, use a folded towel soaked in the epsom salt solution and apply to the area. Use clean hot tap water (about the temperature of a very warm bath), mixing in about one (1) teaspoon for every pint of water. Two gallon --> 16 teaspoons Epsom Salts One gallon --> 8 teaspoons Epsom Salts Two quarts --> 4 teaspoons Epsom Salts One quart --> 2 teaspoons Epsom Salts Soak the wound for about 20 minutes while gently moving it around in the water. Repeat this four (4) times a day. Acetaminophen Acetaminophen may be taken for pain relief or fever control. It's much safer than aspirin, offering a wider range of "safe" dosages. It is safe during . Some brand names are Tylenol, Panadol, Datril, Anacin 3, Tempra, and Liquiprin. Acetaminophen can be repeated every four hours. The following are maximum recommended dosages: WEIGHT Dose Drops Elixir Chewable( 80mg) (LBS.) drprs=droppers tsp=teaspoon 6 40 mg .4 ml (1/2) 6-11 80 mg .8 ml (full) 1/2 tsp 1 tab 12-16 120 mg 1 1/2 drprs 3/4 tsp 1 1/2 tabs 17-23 160 mg 2 drprs 1 tsp 2 tabs 24-30 240 mg 3 drprs 1 1/2 tsp 3 tabs 30-35 320 mg 2 tsp 4 tabs 36-41 360 mg 2 1/4 tsp 4 1 /2 tabs 42-47 400 mg 2 1/2 tsp 5 tabs 48-53 480 mg 3 tsp 6 tabs 54-59 520 mg 3 1/4 tsp 6 1 /2 tabs 60-64 560 mg 3 1/2 tsp 7 tabs 65-70 600 mg 3 3/4 tsp 7 1 /2 tabs 71-76 640 mg 4 tsp 8 tabs 77-82 720 mg 4 1/2 tsp 9 tabs 83-88 800 mg 5 tsp 10 tabs >89 pounds or adults 650 mg to 900 mg Acetaminophen can be repeated every four hours. Maximum daily dose not to exceed 4000 mg. These maximum recommended dosages are slightly higher than the dosages written on the product container, but these dosages are very safe and well below the toxic dosage for acetaminophen. FOLLOW-UP CARE: If you have been referred to a physician for follow-up care, call the physician s office for an appointment as you were instructed or within the next two days. If you experience worsening or a significant change in your symptoms, notify the physician immediately or return to the Emergency Department at any time for re-evaluation. Forms: Elevated Blood Pressure Referrals: PAULINA HAND DPM [ACTIVE STAFF] - Follow up as needed
== END 2017-12-28 19:20 | disposition home or self-care (01) ==
LOC: ER 17:54
DX: M79.672 Pain in left foot (principal); Z88.6 Allergy status to analgesic agent
CPT/HCPCS: 99283

== ENCOUNTER 2018-09-26 15:06 | Emergency (ER) | payer OTHER ==
[2018-09-26 15:26] VITALS: BP 144/83
--- NOTE | 2018-09-26 15:49 | ER Document Report ---
HPI - HPI Time Seen by Provider: 09/26/18 15:41 Pain Level: 4 Notes: Patient is a 58-year-old male no significant pertinent past medical history aside from asthma who presents to the emergency department complaining of frontal sinus pain, sinus headache, nasal congestion/discharge, postnasal drip, occasional dry nonproductive cough that has been ongoing for 8-10 days. His cough has been flaring up his asthma on occasion, but he does have treatments and inhalers at home. Patient states that he has been using [id number] meds with no relief. He is eating and drinking without difficulty. He is urinating normally and having normal bowel movements. He does have an appointment scheduled with his PCM on Friday. Denies any fever, neck pain, drooling, hoarseness, sore throat, chest pain, palpitations, syncope, shortness of breath, dyspnea, abdominal pain, nausea/vomiting/diarrhea, urinary retention, dysuria, hematuria, or rash. - ROS Systems Reviewed and Negative: Yes All other systems reviewed and negative Past Medical History - Social History Smoking Status: Never Smoker Family History: Arthritis, CAD, COPD, CVA, DM, Hyperlipidemia, Hypertension, Malignancy, Thyroid Disfunction - Past Medical History Cardiac Medical History: Reports: Hx Heart Attack, Hx Hypercholesterolemia, Hx Hypertension Pulmonary Medical History: Reports: Hx Asthma, Hx Bronchitis Neurological Medical History: Reports: Hx Seizures - hypoglycemia Endocrine Medical History: Reports: Hx Diabetes Mellitus Type 2 Renal/ Medical History: Denies: Hx Peritoneal Dialysis Musculoskeletal Medical History: Reports Hx Arthritis, Reports Hx Musculoskeletal Deformity, Reports Hx Musculoskeletal Trauma Skin Medical History: Reports Hx MRSA Psychiatric Medical History: Reports: Hx Anxiety, Hx Depression, Hx Post Traumatic Stress Disorder Traumatic Medical History: Reports: Hx Fractures - Knee cap and fingers Infectious Medical History: Reports: Hx MRSA Past Surgical History: Reports: Hx Orthopedic Surgery - left knee and right knee and ankle surgery MRSA in the knee - Immunizations Hx Diphtheria, Pertussis, Tetanus Vaccination: No Vertical Provider Document - CONSTITUTIONAL Agree With Documented VS: Yes Notes: PHYSICAL EXAMINATION: GENERAL: Well-appearing, well-nourished and in no acute distress. A&Ox4. Answers questions appropriately. Moves comfortably w/o notable distress HEAD: Atraumatic, normocephalic. EYES: Pupils equal round and reactive to light, extraocular movements intact, sclera anicteric, conjunctiva are normal. ENT: EAC clear b/l. TM's intact b/l without erythema, fluid, or perforation. Nares patent and with yellow discharge. oropharynx no erythema without exudates. No tonsilar hypertrophy without erythema or exudate. No palatine shift. Uvula midline. No tongue protrusion. No drooling, hoarseness, or airway compromise. Moist mucous membranes. + frontal sinus tenderness. NECK: Normal range of motion, supple without lymphadenopathy. No rigidity/meningismus. LUNGS: Breath sounds clear to auscultation bilaterally and equal. No wheezes rales or rhonchi. No retractions HEART: Regular rate and rhythm without murmurs, rubs, gallops. ABDOMEN: Soft, nontender, nondistended abdomen. No guarding, no rebound. Normal bowel sounds present. No CVA tenderness bilaterally. NEUROLOGICAL: Normal speech, normal gait. Normal sensory, motor exams PSYCH: Normal mood, normal affect. SKIN: Warm, Dry, normal turgor, no rashes or lesions noted. - INFECTION CONTROL TRAVEL OUTSIDE OF THE [place] IN LAST 30 DAYS: No Course - Re-evaluation Re-evalutation: 09/26/18 15:47 Patient is an afebrile, well-hydrated, 58-year-old male who presents to the ED with acute URI, suspect viral. Vitals are acceptable. PE is otherwise unremarkable. No labs or imaging warranted at this time based on H&P. Patient has no significant cardiopulmonary or immunocompromised medical conditions. Patient's lungs are clear to auscultation bilaterally without tachycardia, hypoxia, or tachypnea. Patient is tolerating p.o. without any difficulties. Declined anything for HAMMOND at this time as it is, "mild." Low suspicion for any meningitis, sepsis, peritonsillar/pharyngeal abscess, respiratory compromise, severe dehydration, or other emergent systemic condition at this time. Patient is aware this condition can change from initial presentation and he needs to monitor symptoms closely. Rx for pocket rx of augmentin that he may begin with ongoing/worsening sx's x2-3 days. Conservative measures otherwise for symptoms. Recheck with your PCM in 3-5 days. Return to the ED with any worsening /concerning symptoms otherwise as reviewed in discharge. Patient is in agreement. - Vital Signs Vital signs: Temp Pulse Resp BP Pulse Ox 97.8 F 75 18 144/83 H 97 09/26/18 15:24 09/26/18 15:24 09/26/18 15:24 09/26/18 15:24 09/26/18 15:24 Discharge - Discharge Clinical Impression: Acute URI Acute sinusitis Qualifiers: Sinusitis location: frontal Recurrence: non-recurrent Qualified Code(s): J01.10 - Acute frontal sinusitis, unspecified Condition: Stable Disposition: HOME, SELF-CARE Additional Instructions: Maintain adequate fluid intake Take meds as directed tylenol/ibuprofen as needed over the counter cold medication as needed for symptoms Humidified air may help Wash your hands regularly Wear a mask when coughing F/u: with your PCM in 3-5 days for a recheck Return to the ED with any fever, worsening pain, chest pain, palpitations, syncope, worsening HAMMOND, neck pain/stiffness, shortness of breath, wheezing, drooling, trouble swallowing/breathing, abdominal pain, n/v/d, rash, or worsening/concerning symptoms otherwise. Prescriptions: Amox Tr/Potassium Clavulanate [Augmentin 875-125 Tablet] 1 tab PO BID 10 Days #20 tablet Forms: Elevated Blood Pressure Referrals: [facility] [Provider Group] - Follow up as needed
== END 2018-09-26 15:55 | disposition home or self-care (01) ==
LOC: ER 15:06
DX: J01.10 Acute frontal sinusitis, unspecified (principal); J06.9 Acute upper respiratory infection, unspecified; R51 Headache; R09.81 Nasal congestion; R09.89 Other specified symptoms and signs involving the circulatory and respiratory systems; R09.82 Postnasal drip; R05 Cough; I10 Essential (primary) hypertension; J45.909 Unspecified asthma, uncomplicated; E11.9 Type 2 diabetes mellitus without complications
CPT/HCPCS: 99283

== ENCOUNTER 2018-11-17 13:05 | Observation (INO) | payer OTHER ==
--- NOTE | 2018-11-17 13:30 | ER Document Report ---
ED Medical Screen (RME) - General Chief Complaint: Chest Pain Stated Complaint: BLOOD PRESSURE ISSUES Time Seen by Provider: 11/17/18 13:16 Primary Care Provider: CAROLINA RIVAS [Primary Care Provider] - Follow up as needed TRAVEL OUTSIDE OF THE [place] IN LAST 30 DAYS: No - HPI Notes: 11/17/18 13:26 Patient is a 58-year-old male with history of asthma and hypertension who presents the emergency department complaining of headache, elevated blood pressure, chest pain, and left side of body "tingling/numb." Patient states that his symptoms started about an hour and 15 minutes ago putting his last known normal at 1205. Patient states that when his symptoms started he did take his blood pressure and was noted to be in the high 200s/high 100s. Patient states that his blood pressure has since improved, but he has decreased sensation to his left side of the body as well as chest tightness. Denies any fever, head injury, neck pain, changes in vision/speech/mentation/hearing, URI, sore throat, chest pain, palpitations, syncope, cough, shortness of breath, wheeze, dyspnea, abdominal pain, nausea/vomiting/diarrhea, urinary retention, dysuria, hematuria, loss of control of bowel or bladder, saddle anesthesia, muscle paralysis/weakness, or rash. I have treated and performed a rapid initial assessment of this patient. A comprehensive ED assessment and evaluation of the patient, analysis of test results and completion of medical decision making process will be conducted by additional ED providers. Pt being sent for stat CT of the head. PHYSICAL EXAMINATION: GENERAL: Well-appearing, well-nourished and in no acute distress. A&Ox4. Answers questions appropriately. HEAD: Atraumatic, normocephalic. Non-tender. EYES: Pupils equal round and reactive to light, extraocular movements intact, sclera anicteric, conjunctiva are normal. No nystagmus. vis queen intact. ENT: Nares patent and without discharge. oropharynx clear without exudates. No tonsilar hypertrophy or erythema. Moist mucous membranes. NECK: Normal range of motion, supple without lymphadenopathy. No rigidity/meningismus. No midline tenderness. LUNGS: Breath sounds clear to auscultation bilaterally and equal. No wheezes rales or rhonchi. HEART: Regular rate and rhythm without murmurs, rubs, gallops. ABDOMEN: Soft, nontender, nondistended abdomen. No guarding, no rebound. N ormal bowel sounds present. No CVA tenderness bilaterally. Musculoskeletal: Ext's b/l: FROM to passive/active. Strength 5+/5. No deficits noted. No bony tenderness of extremities. Extremities: No cyanosis, clubbing, or edema b/l. Peripheral pulses 2+. Capillary refill less than 2 seconds. NEUROLOGICAL: NIH 1 respectively with dec sensation Left side of body to sharp/dull, otherwise appears neurologically intact at this time. GCS 15. Cranial nerves grossly intact. Normal speech, normal gait. Reflexes 2+ b/l. MIGUEL's negative. Pronator drift negative. Heel/mota, finger/nose wnl. PSYCH: Normal mood, normal affect. SKIN: Warm, Dry, normal turgor, no rashes or lesions noted. - Related Data Allergies/Adverse Reactions: ibuprofen Allergy (Verified 11/17/18 13:06) Past Medical History - Social History Frequency of alcohol use: None Drug Abuse: None Family history: None - Past Medical History Cardiac Medical History: Reports: Hx Heart Attack, Hx Hypercholesterolemia, Hx Hypertension Pulmonary Medical History: Reports: Hx Asthma, Hx Bronchitis Neurological Medical History: Reports: Hx Seizures - hypoglycemia Endocrine Medical History: Reports: Hx Diabetes Mellitus Type 2 Renal/ Medical History: Denies: Hx Peritoneal Dialysis Musculoskeltal Medical History: Reports Hx Arthritis, Reports Hx Musculoskeletal Deformity, Reports Hx Musculoskeletal Trauma Skin Medical History: Reports Hx MRSA Psychiatric Medical History: Reports: Hx Anxiety, Hx Depression, Hx Post Traumatic Stress Disorder Traumatic Medical History: Reports: Hx Fractures - Knee cap and fingers Infectious Medical History: Reports: Hx MRSA Past Surgical History: Reports: Hx Orthopedic Surgery - left knee and right knee and ankle surgery MRSA in the knee - Immunizations Hx Diphtheria, Pertussis, Tetanus Vaccination: No Physical Exam - Vital signs Vitals: Temp Pulse Resp BP Pulse Ox 97.3 F 75 14 163/85 H 98 11/17/18 13:15 11/17/18 13:15 11/17/18 13:15 11/17/18 13:15 11/17/18 13:15 Course - Vital Signs Vital signs: Temp Pulse Resp BP Pulse Ox 97.3 F 75 14 163/85 H 98 11/17/18 13:15 11/17/18 13:15 11/17/18 13:15 11/17/18 13:15 11/17/18 13:15 Doctor's Discharge - Discharge [facility]errals: [facility] [[facility] - Follow up as needed
--- NOTE | 2018-11-17 13:31 | EKG REPORT ---
SEVERITY:- NORMAL ECG - SINUS RHYTHM : Confirmed by: Onel Mora MD 17-Nov-2018 13:30:46
--- NOTE | 2018-11-17 13:46 | RADIOLOGY REPORT (SQ) ---
EXAM DESCRIPTION: CHEST SINGLE VIEW COMPLETED DATE/TIME: 11/17/2018 1:33 pm REASON FOR STUDY: CP COMPARISON: 10/03/2017 EXAM PARAMETERS: NUMBER OF VIEWS: One view. TECHNIQUE: Single frontal radiographic view of the chest acquired. RADIATION DOSE: NA LIMITATIONS: None. FINDINGS: LUNGS AND PLEURA: No opacities, masses or pneumothorax. No pleural effusion. MEDIASTINUM AND HILAR STRUCTURES: No masses. Contour normal. HEART AND VASCULAR STRUCTURES: Heart normal in size. Normal vasculature. BONES: No acute findings. HARDWARE: None in the chest. OTHER: No other significant finding. IMPRESSION: 1. No significant interval changes since the prior examination dated 10/03/2017. No acu te findings. TECHNICAL DOCUMENTATION: JOB ID: [id number] [employer]- All Rights Reserved Reading location - IP/workstation name: [email or web address]
--- NOTE | 2018-11-17 13:56 | RADIOLOGY REPORT (SQ) ---
EXAM DESCRIPTION: CT HEAD WITHOUT COMPLETED DATE/TIME: 11/17/2018 1:33 pm REASON FOR STUDY: left side of body dec sensation, HAMMOND COMPARISON: 04/12/2016 TECHNIQUE: Axial images acquired through the brain without intravenous contrast. Images reviewed wi th bone, brain and subdural windows. Additional sagittal and coronal reconstructions were generated. Images stored on PACS. All CT scanners at this facility use dose modulation, iterative reconstruction, and/or weight based d osing when appropriate to reduce radiation dose to as low as reasonably achievable (ALARA). [facility]: Dose Right [facility]: CareDose [facility]: Dose Right [facility]: Teradose 4D [facility]: Smart Occasion RADIATION DOSE: CT Rad equipment meets quality standard of care and radiation dose reduction techniq ues were employed. CTDIvol: 53.2 mGy. DLP: 1044 mGy-cm. LIMITATIONS: None. FINDINGS: VENTRICLES: Normal size and contour. The cisterns are patent. CEREBRUM: No masses. No hemorrhage. No midline shift. No evidence for acute infarction. Normal gra y/white matter differentiation. No areas of low density in the white matter. CEREBELLUM: No masses. No hemorrhage. No alteration of density. No evidence for acute infarction. EXTRAAXIAL SPACES: No fluid collections. No masses. ORBITS AND GLOBE: No intra- or extraconal masses. Normal contour of globe without masses. CALVARIUM: No fracture. PARANASAL SINUSES: Slight to mild mucosal thickening in the maxillary sinuses, more so on the left, and mucous retention cyst or polyps. Minimal to slight changes in the left frontal sinus. Deviation of the nasal septum to the left of the midline. Nasal bony spur. SOFT TISSUES: No mass or hematoma. OTHER: No other significant finding. IMPRESSION: 1. No significant interval changes since the previous examination dated 04/12/2016. No acute intracranial abnormality. 2. Chronic bilateral maxillary sinus disease. Slight chronic changes in the frontal sinuses. EVIDENCE OF ACUTE STROKE: NO. COMMENT: 1. The results of this examination were discussed with the patient's emergency department provider on 11/17/2018 at 13:46 hours. Quality ID # [id number]: Final reports with documentation of one or more dose reduction techniques (e.g., Au tomated exposure control, adjustment of the mA and/or kV according to patient size, use of iterative reconstruction technique) TECHNICAL DOCUMENTATION: JOB ID: [id number] [employer]- All Rights Reserved Reading location - IP/workstation name: [email or web address]
[2018-11-17 14:09] LABS: ABSOLUTE EOSINOPHILS # (AUTO) 0.2 10^3/uL (0.0-0.6); ABSOLUTE LYMPHOCYTES (AUTO) 2.2 10^3/uL (0.5-4.7); ABSOLUTE MONOCYTES (AUTO) 0.5 10^3/uL (0.1-1.4); ABSOLUTE NEUT (AUTO) 2.6 10^3/uL (1.7-8.2); BASOPHILS % (AUTO) 0.6 % (0-2); EOSINOPHILS % (AUTO) 3.3 % (0-6); HEMATOCRIT 40.5 % (37.9-51.0); HEMOGLOBIN 13.7 g/dL (13.5-17.0); INTERNATIONAL RATION (INR) 0.87; LYMPHOCYTES % (AUTO) 40.1 % (13-45); MEAN CORPUSCULAR HEMOGLOBIN 30.3 pg (27.0-33.4); MEAN CORPUSCULAR HGB CONC 33.9 g/dL (32.0-36.0); MEAN CORPUSCULAR VOLUME 89 fl (80-97); PARTIAL THROMBOPLASTIN TIME 25.7 SEC (23.5-35.8); PLATELET COUNT 261 10^3/uL (150-450); PROTHROMBIN TIME 12.3 SEC (11.4-15.4); RED BLOOD COUNT 4.53 10^6/uL (4.35-5.55); RED CELL DISTRIBUTION WIDTH 13.6 % (11.5-14.0); TOTAL CELLS COUNTED % (AUTO) 100 %; WHITE BLOOD COUNT 5.5 10^3/uL (4.0-10.5)
[2018-11-17 14:27] LABS: ALANINE AMINOTRANSFERASE 40 U/L (21-72); ALBUMIN 4.3 g/dL (3.5-5.0); ALKALINE PHOSPHATASE 79 U/L (38-126); ANION GAP 10 (5-19); ASPARTATE AMINO TRANSFERASE 32 U/L (17-59); BILIRUBIN,DIRECT 0.2 mg/dL (0.0-0.4); BILIRUBIN,TOTAL 0.4 mg/dL (0.2-1.3); BLOOD UREA NITROGEN 13 mg/dL (7-20); CALCIUM 9.9 mg/dL (8.4-10.2); CARBON DIOXIDE 26 mmol/L (22-30); CHLORIDE 103 mmol/L (98-107); GLUCOSE 118 mg/dL (75-110); TOTAL PROTEIN 7.5 g/dL (6.3-8.2)
--- NOTE | 2018-11-17 16:45 | ER Document Report ---
ED General - General Chief Complaint: Chest Pain Stated Complaint: BLOOD PRESSURE ISSUES Time Seen by Provider: 11/17/18 13:16 Mode of Arrival: Ambulatory Information source: Patient Notes: This is a 58-year-old man with a history of hypertension that got an argument with his and had sudden rise in his blood pressure. He states he had difficulty ambulating and left-sided numbness after the event. He states his blood pressure was checked at home and systolic was greater than 220. By the time he came into the emergency room his blood pressure was down and he had no problems with his gait. He did have residual left-sided numbness. TRAVEL OUTSIDE OF THE [place] IN LAST 30 DAYS: No - HPI Onset: Just prior to arrival Onset/Duration: Sudden Quality of pain: Dull Severity: Mild Pain Level: 1 - Held headache Associated symptoms: denies: Chills, Fever, Shortness of breath Exacerbated by: Denies Relieved by: Denies Similar symptoms previously: No Recently seen / treated by doctor: No - Related Data Allergies/Adverse Reactions: ibuprofen Allergy (Verified 11/17/18 13:06) Past Medical History - General Information source: Patient - Social History Smoking Status: Never Smoker Cigarette use (# per day): No Chew tobacco use (# tins/day): No Frequency of alcohol use: None Drug Abuse: None Lives with: Family Family History: Arthritis, CAD, COPD, CVA, DM, Hyperlipidemia, Hypertension, Malignancy, Thyroid Disfunction Patient has suicidal ideation: No Patient has homicidal ideation: No - Past Medical History Cardiac Medical History: Reports: Hx Heart Attack, Hx Hypercholesterolemia, Hx Hypertension Pulmonary Medical History: Reports: Hx Asthma, Hx Bronchitis Neurological Medical History: Reports: Hx Seizures - hypoglycemia Endocrine Medical History: Reports: Hx Diabetes Mellitus Type 2 Renal/ Medical History: Denies: Hx Peritoneal Dialysis Musculoskeletal Medical History: Reports Hx Arthritis, Reports Hx Musculoskeletal Deformity, Reports Hx Musculoskeletal Trauma Skin Medical History: Reports Hx MRSA Psychiatric Medical History: Reports: Hx Anxiety, Hx Depression, Hx Post Traumatic Stress Disorder Traumatic Medical History: Reports: Hx Fractures - Knee cap and fingers Infectious Medical History: Reports: Hx MRSA Past Surgical History: Reports: Hx Orthopedic Surgery - left knee and right knee and ankle surgery MRSA in the knee - Immunizations Hx Diphtheria, Pertussis, Tetanus Vaccination: No Review of Systems - Review of Systems Constitutional: denies: Chills, Fever EENT: No symptoms reported Cardiovascular: See HPI. denies: Chest pain, Palpitations Respiratory: No symptoms reported Gastrointestinal: No symptoms reported Genitourinary: No symptoms reported Male Genitourinary: No symptoms reported Musculoskeletal: No symptoms reported Skin: No symptoms reported Hematologic/Lymphatic: No symptoms reported Neurological/Psychological: See HPI Physical Exam - Vital signs Vitals: Temp Pulse Resp BP Pulse Ox 97.3 F 75 14 163/85 H 98 11/17/18 13:15 11/17/18 13:15 11/17/18 13:15 11/17/18 13:15 11/17/18 13:15 Notes: Physical exam: GENERAL: She was alert and oriented x3, no acute distress HEAD: Atraumatic, normocephalic. EYES: Pupils equal round and reactive to light, extraocular movements intact, sclera anicteric, conjunctiva are normal. ENT: TMs normal, nares patent, oropharynx clear without exudates. Moist mucous membranes. NECK: Normal range of motion, supple without obvious mass or JVD. LUNGS: Breath sounds clear to auscultation bilaterally and equal. No wheezes rales or rhonchi. HEART: Regular rate and rhythm without murmurs, rubs or gallops. ABDOMEN: Soft, normoactive bowel sounds. No tenderness to palpation. No guarding, no rebound. No masses appreciated. EXTREMITIES: Normal range of motion, no pitting or edema. No clubbing or cyanosis. NEUROLOGICAL: Cranial nerves II through XII grossly intact. Visual queen intact. Normal speech, moving all extremities. Motor 5/5, sensory grossly intact, cerebellar (finger to nose good). NIH is 1 (sensory loss on the left side). PSYCH: Normal mood, normal affect. SKIN: Warm, Dry, normal turgor, no rashes or lesions noted. Course - Re-evaluation Re-evalutation: Patient's NIH scale is 1. Based upon the improvement of symptoms and low NIH score, he is not felt to be a candidate for TPA. I have discussed that with him and he is in agreement. Given his risk factors (hypertension, family history), we will admit him for further evaluation and risk stratification. 11/17/18 16:46 - Vital Signs Vital signs: Temp Pulse Resp BP Pulse Ox 97.3 F 82 20 182/82 H 96 11/17/18 13:15 11/17/18 19:00 11/17/18 19:01 11/17/18 19:01 11/17/18 19:01 - Laboratory Result Diagrams: 11/17/18 13:48 11/17/18 13:48 Laboratory results interpreted by me: 11/17/18 11/17/18 13:48 13:51 Creatinine 1.32 H Est GFR (Non-Af Amer) 56 L Glucose 118 H POC Glucose 114 H - Diagnostic Test Radiology reviewed: Image reviewed, Reports reviewed - CT of the head shows no acute bleed or stroke. Chest x-ray was clear - EKG Interpretation by Me Rhythm: NSR - EKG shows normal sinus rhythm with a ventricular rate of 72, no acute ST-T wave changes Critical Care Note - Critical Care Note Total time excluding time spent on procedures (mins): 60 Discharge - Discharge Clinical Impression: CVA Condition: Stable Disposition: ADMITTED INPATIENT Admitting Provider: Hospitalist - Dr lobo Unit Admitted: [facility]
[2018-11-17] MEDS ORDERED: LABETALOL HCL INJ 20 MG/4 ML DISP.SYRIN IV PRN (17:09)
--- NOTE | 2018-11-17 17:21 | PDOC H&P ---
History of Present Illness Admission Date/PCP: 11/17/18 16:51 [facility] History of Present Illness: LATA DONOHUE is a 58 year old male with a history of hypertension hyperlipidemia who got into an argument with his significant other today and said he could feel his heart pounding in his chest and so he took his blood pressure and he said that it was extremely high, with a systolic in the 240s or 250s, and a diastolic in he said the 190s. He said that he took a couple of aspirin at that time because he started to feel numb in his left side and said he had some weakness. That is since resolved and he is ambulating able to use his left upper extremity without any difficulty. In fact, he was eating some chicken wings never came in the room and using his left hand to wipe the sweat off of his head. His blood pressure in the ER has come down without any intervention. He is never had anything like this happen before. He says he is a borderline diabetic. He does not smoke. He said his father had multiple heart attacks and multiple strokes. Because of the persistent left-sided numbness he is being brought in to be evaluated for acute stroke. Initial head CT was negative. Past Medical History Cardiac Medical History: Reports: Myocardial Infarction, Hyperlipidema, Hypertension Pulmonary Medical History: Reports: Asthma, Bronchitis Neurological Medical History: Reports: Seizures - hypoglycemia Endocrine Medical History: Reports: Diabetes Mellitus Type 2 Musculoskeltal Medical History: Reports: Arthritis Psychiatric Medical History: Reports: Depression, Post Traumatic Stress Disorder Infectious Medical History: Reports: Methicillin-Resistant Staph Aureus Past Surgical History Past Surgical History: Reports: Orthopedic Surgery - left knee and right knee and ankle surgery MRSA in the knee Social History Smoking Status: Never Smoker Family History Family History: Arthritis, CAD, COPD, CVA, DM, Hyperlipidemia, Hypertension, Malignancy, Thyroid Disfunction Parental Family History Reviewed: Yes - Father had multiple heart attacks multiple strokes Children Family History Reviewed: Yes Sibling(s) Family History Reviewed.: Yes Medication/Allergy Home Medications: Albuterol Sulfate [Ventolin Hfa] 1 - 2 puff IH Q4 PRN 01/21/15 Aspirin [Aspirin 81 mg Chewable Tablet] 81 mg PO DAILY 01/21/15 Cetirizine HCl [Zyrtec] 10 mg PO DAILY #30 capsule 01/21/15 Tramadol HCl [Ultram 50 mg Tablet] 50 mg PO ASDIR PRN #20 tablet 07/07/16 Methylprednisolone [Medrol Dosepack (4 mg/Tab) 21 Tab/Dosepak] 4 mg PO ASDIR PRN #21 tab.ds.pk 10/03/17 Lisinopril/Hydrochlorothiazide [Lisinopril-Hctz 20-25 mg Tab] 1 each PO DAILY 11/17/18 Allergies/Adverse Reactions: ibuprofen Allergy (Verified 11/17/18 13:06) Review of Systems All systems: reviewed and no additional remarkable complaints except as stated - All systems reviewed and were negative except as noted in the HPI Physical Exam Vital Signs: Temp Pulse Resp BP Pulse Ox 97.3 F 75 12 156/89 H 99 11/17/18 13:15 11/17/18 13:35 11/17/18 14:26 11/17/18 14:26 11/17/18 14:26 Intake & Output 11/16/18 11/17/18 11/18/18 06:59 06:59 06:59 Weight 108.4 kg General appearance: PRESENT: no acute distress, cooperative, disheveled, obese, other - Sweaty Head exam: PRESENT: atraumatic, normocephalic Eye exam: PRESENT: EOMI, PERRLA. ABSENT: conjunctival injection, nystagmus, scleral icterus Ear exam: PRESENT: normal external ear exam Mouth exam: PRESENT: moist, neck supple Throat exam: ABSENT: post pharyngeal erythema Neck exam: PRESENT: full ROM. ABSENT: carotid bruit, JVD, lymphadenopathy, meningismus, tenderness, thyromegaly Respiratory exam: PRESENT: clear to auscultation josé luis, symmetrical, unlabored. ABSENT: accessory muscle use, crackles, prolonged expiratory phas, rhonchi, tachypnea, wheezes Cardiovascular exam: PRESENT: RRR, +S1, +S2 Pulses: PRESENT: normal carotid pulses Vascular exam: PRESENT: normal capillary refill GI/Abdominal exam: PRESENT: distended, guarding, normal bowel sounds, soft. ABSENT: rebound, tenderness Extremities exam: ABSENT: clubbing, pedal edema Musculoskeletal exam: PRESENT: ambulatory, normal inspection. ABSENT: deformity Neurological exam: PRESENT: alert, awake, oriented to person, oriented to place, oriented to time, oriented to situation, CN II-XII grossly intact, motor sensory deficit - He said he still has some numbness in the left arm and left leg Psychiatric exam: PRESENT: appropriate affect, normal mood Skin exam: PRESENT: warm. ABSENT: dry - His neck and forehead were sweaty, but he attributed that to the [place] chicken wings he was eating Results Laboratory Results: 11/17/18 13:48 11/17/18 13:48 11/17/18 11/17/18 13:48 13:48 WBC 5.5 RBC 4.53 Hgb 13.7 Hct 40.5 MCV 89 MCH 30.3 MCHC 33.9 RDW 13.6 Plt Count 261 Seg Neutrophils % 47.0 Lymphocytes % 40.1 Monocytes % 9.0 Eosinophils % 3.3 Basophils % 0.6 Absolute Neutrophils 2.6 Absolute Lymphocytes 2.2 Absolute Monocytes 0.5 Absolute Eosinophils 0.2 Absolute Basophils 0.0 Sodium 139.0 Potassium 4.0 Chloride 103 Carbon Dioxide 26 Anion Gap 10 BUN 13 Creatinine 1.32 H Est GFR ( Amer) > 60 Est GFR (Non-Af Amer) 56 L Glucose 118 H Calcium 9.9 Total Bilirubin 0.4 AST 32 ALT 40 Alkaline Phosphatase 79 Total Protein 7.5 Albumin 4.3 11/17/18 13:48 Troponin I < 0.012 Impressions: Chest X-Ray 11/17/18 13:25 IMPRESSION: 1. No significant interval changes since the prior examination dated 10/03/2017. No acute findings. Head CT 11/17/18 13:25 IMPRESSION: 1. No significant interval changes since the previous examination dated 04/12/2016. No acute intracranial abnormality. 2. Chronic bilateral maxillary sinus disease. Slight chronic changes in the frontal sinuses. EVIDENCE OF ACUTE STROKE: NO. Assessment and Plan - Diagnosis (1) TIA (transient ischemic attack) Is this a current diagnosis for this admission?: Yes Plan: We will get an MRI of the head, ordered MRA of the head and neck but I got a call from the MRI department saying that they would not do it, saying something about how the hospital would not pay for it, which I do not quite understand, but just so that I can get some sort of evaluation done, I am going to order a carotid Doppler ultrasound.. Start aspirin and statin. Check a lipid panel and a hemoglobin A1c. Have him evaluated by PT, OT, and speech therapy. Permissive hypertension for the first 24 hours. - Time Time Spent with patient: 35 or more minutes
[2018-11-17] MEDS ORDERED: ACETAMINOPHEN 325 MG TABLET PO ONE (19:04)
[2018-11-17] MEDS ORDERED: LORAZEPAM 0.5 MG TABLET PO ONE (21:04)
--- NOTE | 2018-11-17 21:15 | RADIOLOGY REPORT (SQ) ---
EXAM DESCRIPTION: US CAROTID DOPPLER BILATERAL COMPLETED DATE/TME: 11/17/2018 00:00 CLINICAL HISTORY: 58 years, Male, tia COMPARISON: None. TECHNIQUE: Transverse longitudinal sonographic images of the cervical portions of the carotid arteries LIMITATIONS: None. FINDINGS: Imaging over the carotids shows mild atheromatous plaque formation of the carotid bifurcations on the right with [id number] on the left.. Doppler and spectral analysis with color flow shows triphasic waveforms bilaterally. Velocities are as follows (in peak systolic velocity): Right proximal CCA: 127 cm/s. Right distal CCA: 114 cm/s. Right proximal ICA: 108 cm/s. Right distal ICA: 81 cm/s. Right ECA: 135 cm/s. Right vertebral artery: 90 cm/s. Right ICA to CCA ratio: 0.9. Left proximal CCA: 151 cm/s. Left distal CCA: 117 cm/s. Left proximal ICA: 168 cm/s. Left distal ICA: 132 cm/s. Left ECA: 120 cm/s. Left vertebral artery: 60 cm/s. Left ICA/CCA ratio: 1.4. IMPRESSION: Mild visible atheromatous plaque formation of the right ICA with mild to moderate on the left.. Peak systolic velocities as above. Less than 50% luminal narrowing of the right ICA with 50-69% of the left. copyright 2010 [employer]- All Rights Reserved
[2018-11-17] MEDS ORDERED: ATORVASTATIN CALCIUM 80 MG TABLET PO SCH (22:00)
--- NOTE | 2018-11-17 22:10 | RADIOLOGY REPORT (SQ) ---
EXAM DESCRIPTION: MRI brain without contrast CLINICAL HISTORY: 58 years Male; left sided numbness. Left hand numbness. Headache. Claustrophobia. TECHNIQUE: Limited noncontrast brain MRI, with axial diffusion, axial T2, axial FLAIR, and sagittal T1 COMPARISON: CT 11/17/2018 FINDINGS: No diffusion restriction. Conley matter, white matter, ventricles, and cisterns are normal. No midline shift or mass-effect. No sinus air-fluid levels. Mastoids are clear. Normal flow-voids are seen in the major intracranial arteries. IMPRESSION: 1. No acute infarct or other acute intracranial findings.
[2018-11-17] MEDS ORDERED: ACETAMINOPHEN 325 MG TABLET PO PRN (23:44)
[2018-11-18 05:48] LABS: CHOLESTEROL 121.54 mg/dL (0-200); TRIGLYCERIDES 105 mg/dL (<150)
[2018-11-18 05:59] LABS: DIRECT LDL 73 mg/dL (<100)
[2018-11-18] MEDS ORDERED: ASPIRIN 81 MG TABLET, CHEWABLE PO SCH (10:00)
[2018-11-18 10:03] VITALS: BP 129/73
--- NOTE | 2018-11-18 15:48 | PDOC DISCHARGE SUMMARY ---
General - Admit/Disc Date/PCP Admission Date/Primary Care Provider: 11/17/18 16:51 [facility] Discharge Date: 11/18/18 - Discharge Diagnosis (1) TIA (transient ischemic attack) Is this a current diagnosis for this admission?: Yes Summary: Workup was negative for acute stroke. He was already on a statin. Blood pressure came down. We will have him take an aspirin every day at home. - Additional Information Discharge Diet: Cardiac Discharge Activity: Activity As Tolerated Home Medications: Albuterol Sulfate [Ventolin Hfa] 1 - 2 puff IH Q4 PRN 01/21/15 Aspirin [Aspirin 81 mg Chewable Tablet] 81 mg PO DAILY 01/21/15 Cetirizine HCl [Zyrtec] 10 mg PO DAILY #30 capsule 01/21/15 Lisinopril/Hydrochlorothiazide [Lisinopril-Hctz 20-25 mg Tab] 1 each PO DAILY 11/17/18 Atorvastatin Calcium [Lipitor 40 mg Tablet] 40 mg PO DAILY 11/18/18 History of Present Illness History of Present Illness: LATA DONOHUE is a 58 year old male with a history of hypertension hyperlipidemia who got into an argument with his significant other today and said he could feel his heart pounding in his chest and so he took his blood pressure and he said that it was extremely high, with a systolic in the 240s or 250s, and a diastolic in he said the 190s. He said that he took a couple of aspirin at that time because he started to feel numb in his left side and said he had some weakness. That is since resolved and he is ambulating able to use his left upper extremity without any difficulty. In fact, he was eating some chicken wings never came in the room and using his left hand to wipe the sweat off of his head. His blood pressure in the ER has come down without any intervention. He is never had anything like this happen before. He says he is a borderline diabetic. He does not smoke. He said his father had multiple heart attacks and multiple strokes. Because of the persistent left-sided numbness he is being brought in to be evaluated for acute stroke. Initial head CT was negative. Hospital Course Hospital Course: He was still claiming he had some left-sided numbness but was able to ambulate i ndependently and use his left arm without any trouble. His blood pressure came down on its own. His workup was negative for stroke. He did have some carotid stenosis on the left side noted on his carotid Doppler and I recommended that his primary care provider get him an outpatient consultation with a vascular surgeon. In the meantime he will continue on aspirin and a statin. His labs and examination were reassuring he was discharged in good condition. Physical Exam Vital Signs: Temp Pulse Resp BP Pulse Ox 97.3 F 69 18 129/73 H 99 11/18/18 10:02 11/18/18 10:02 11/18/18 10:02 11/18/18 10:02 11/18/18 10:02 Intake & Output 11/17/18 11/18/18 11/19/18 06:59 06:59 06:59 Intake Total 450 Balance 450 Weight 109.3 kg General appearance: PRESENT: no acute distress, cooperative, disheveled, obese Respiratory exam: PRESENT: clear to auscultation josé luis, symmetrical, unlabored. ABSENT: accessory muscle use, crackles, prolonged expiratory phas, rhonchi, tachypnea, wheezes Cardiovascular exam: PRESENT: RRR, +S1, +S2 Pulses: PRESENT: normal carotid pulses Vascular exam: PRESENT: normal capillary refill GI/Abdominal exam: PRESENT: distended, guarding, normal bowel sounds, soft. ABSENT: rebound, tenderness Extremities exam: ABSENT: clubbing, pedal edema Musculoskeletal exam: PRESENT: ambulatory, normal inspection. ABSENT: deformity Neurological exam: PRESENT: alert, awake, oriented to person, oriented to place, oriented to time, oriented to situation, CN II-XII grossly intact, motor sensory deficit - He said he still has some numbness in the left arm and left leg Psychiatric exam: PRESENT: appropriate affect, normal mood Results Laboratory Results: 11/17/18 13:48 11/17/18 13:48 11/18/18 05:00 Triglycerides 105 Cholesterol 121.54 LDL Cholesterol Direct 73 VLDL Cholesterol 21.0 HDL Cholesterol 32 L 11/17/18 13:48 Troponin I < 0.012 Impressions: Carotid Doppler Study 11/17/18 00:00 IMPRESSION: Mild visible atheromatous plaque formation of the right ICA with mild to moderate on the left.. Peak systolic velocities as above. Less than 50% luminal narrowing of the right ICA with 50-69% of the left. copyright 2011 [employer]- All Rights Reserved Head MRI 11/17/18 00:00 IMPRESSION: 1. No acute infarct or other acute intracranial findings. Chest X-Ray 11/17/18 13:25 IMPRESSION: 1. No significant interval changes since the prior examination dated 10/03/2017. No acute findings. Head CT 11/17/18 13:25 IMPRESSION: 1. No significant interval changes since the previous examination dated 04/12/2016. No acute intracranial abnormality. 2. Chronic bilateral maxillary sinus disease. Slight chronic changes in the frontal sinuses. EVIDENCE OF ACUTE STROKE: NO. Qualifiers - * PATIENT BEING DISCHARGED WITH ANY OF THE FOLLOWING DIAGNOSIS: No
[2018-11-18] MEDS ORDERED: ATORVASTATIN CALCIUM 40 MG TABLET PO SCH (22:00)
== END 2018-11-18 10:45 | disposition home or self-care (01) ==
LOC: ER 13:05 → EH 16:51 → INTOOBSV 16:51 → 3W 22:23
PROVIDERS: ADMIT Family Medicine; ATTEND Family Medicine
DX: G45.9 Transient cerebral ischemic attack, unspecified (principal); I10 Essential (primary) hypertension; E78.5 Hyperlipidemia, unspecified; R73.03 Prediabetes; R20.0 Anesthesia of skin; R07.89 Other chest pain; I25.2 Old myocardial infarction; R29.701 NIHSS score 1; Z79.899 Other long term (current) drug therapy; Z79.82 Long term (current) use of aspirin; Z82.49 Family history of ischemic heart disease and other diseases of the circulatory system; Z82.3 Family history of stroke
CPT/HCPCS: 93005; 99291; 36415 ×2; 82962; 85025; 85610; 85730; 80053; 84484; 83036; 80061; 93880; 70551; 71045; 70450; 93010; 97116; 97161; 97165; J3490 ×2; G0378

== ENCOUNTER 2019-07-16 06:09 | Emergency (ER) | payer OTHER ==
--- NOTE | 2019-07-16 08:52 | ER Document Report ---
HPI - HPI Time Seen by Provider: 07/16/19 08:08 Pain Level: 4 Notes: Patient is a 59-year-old male who presents complaining of acute on chronic right knee pain. Patient states that he has had that knee scoped twice before. Patient does not recall specific injury. Patient states that it does feel like it is on the inside of his knee. His knee does not give out on him but on occasion he will feel some clicking. He has not noticed any swelling. No recent illness. Denies any headache, fever, neck pain, URI, sore throat, chest pain, palpitations, syncope, cough, shortness of breath, wheeze, dyspnea, abdominal pain, nausea/vomiting/diarrhea, urinary retention, dysuria, hematuria, or rash. - ROS Systems Reviewed and Negative: Yes All other systems reviewed and negative - CONSTITUTIONAL Constitutional: DENIES: Fever, Chills - REPRODUCTIVE Reproductive: DENIES: : - MUSCULOSKELETAL Musculoskeletal: REPORTS: Extremity pain - right knee Past Medical History - Social History Smoking Status: Never Smoker Family History: Arthritis, CAD, COPD, CVA, DM, Hyperlipidemia, Hypertension, Malignancy, Thyroid Disfunction Patient has suicidal ideation: No Patient has homicidal ideation: No - Past Medical History Cardiac Medical History: Reports: Hx Heart Attack, Hx Hypercholesterolemia, Hx Hypertension Pulmonary Medical History: Reports: Hx Asthma, Hx Bronchitis Neurological Medical History: Reports: Hx Seizures - hypoglycemia Endocrine Medical History: Reports: Hx Diabetes Mellitus Type 2 Renal/ Medical History: Denies: Hx Peritoneal Dialysis Musculoskeletal Medical History: Reports Hx Arthritis, Reports Hx Musculoskeletal Deformity, Reports Hx Musculoskeletal Trauma Skin Medical History: Reports Hx MRSA Psychiatric Medical History: Reports: Hx Anxiety, Hx Depression, Hx Post Traumatic Stress Disorder Traumatic Medical History: Reports: Hx Fractures - Knee cap and fingers Infectious Medical History: Reports: Hx MRSA Past Surgical History: Reports: Hx Orthopedic Surgery - left knee and right knee and ankle surgery MRSA in the knee - Immunizations Hx Diphtheria, Pertussis, Tetanus Vaccination: No Vertical Provider Document - CONSTITUTIONAL Agree With Documented VS: Yes Notes: PHYSICAL EXAMINATION: GENERAL: Well-appearing, well-nourished and in no acute distress. LUNGS: Breath sounds clear to auscultation bilaterally and equal. No wheezes rales or rhonchi. HEART: Regular rate and rhythm without murmurs, rubs, gallops. Musculoskeletal: Rt knee: No obvious swelling, ecchymosis, effusion, or deformity. FROM to passive/active. Strength 5+/5. N/V intact distal. No bony tenderness. Ligamentous grossly stable, limited exam with larger leg size. Darío grossly negative. Patellar grind negative. No calf tenderness. Extremities: No cyanosis, clubbing, or edema b/l. Peripheral pulses 2+. Capillary refill less than 3 seconds. Clarence neg b/l. NEUROLOGICAL: Normal speech, normal gait. Normal sensory, motor exams PSYCH: Normal mood, normal affect. SKIN: Warm, Dry, normal turgor, no rashes or lesions noted. - INFECTION CONTROL TRAVEL OUTSIDE OF THE [place] IN LAST 30 DAYS: No Course - Re-evaluation Re-evalutation: 07/16/19 09:35 Patient is an afebrile, well-hydrated, 59-year-old male who presents to the ED with Rt knee pain, acute on chronic. Vitals are acceptable without any significant tachycardia, tachypnea, or hypoxia. PE is otherwise unremarkable for any neurovascular compromise, obvious tendon/ligament rupture, obvious fracture/dislocation, septic joint. X-ray was unremarkable for any acute pathology. Knee immobilizer and crutches were requested by patient and provided today. Patient is nontoxic-appearing. Patient is able to ambulate and weight- bear. No other labs or imaging warranted at this time based on H&P. Conservative measures otherwise for symptoms. Recheck with your PCM in 3-5 days. Consider consult orthopedics. Return to the ED with any worsening/concerning symptoms otherwise as reviewed in discharge. Patient is in agreement. - Vital Signs Vital signs: Temp Pulse Resp BP Pulse Ox 97.3 F 57 L 18 161/94 H 99 07/16/19 06:12 07/16/19 06:12 07/16/19 06:12 07/16/19 06:12 07/16/19 06:12 Discharge - Discharge Clinical Impression: Right knee pain Qualifiers: Chronicity: acute Qualified Code(s): M25.561 - Pain in right knee Condition: Stable Disposition: HOME, SELF-CARE Additional Instructions: Rest, Ice, Compression, Elevation Tylenol/ibuprofen as needed Light stretches daily Strength exercises as able Moist heat and massage may help F/u with your PCP in 3-5 days for a recheck Consider consult(s) with Orthopedics/physical therapy for ongoing/worsening symptoms Return to the ED with any worsening symptoms and/or development of fever, headache, chest pain, palpitations, syncope, shortness of breath, trouble breathing, abdominal pain, n/v/d, muscle weakness/paralysis, numbness/tingling, swelling, redness, or other worsening symptoms that are concerning to you. Forms: Elevated Blood Pressure Referrals: [facility] [Primary Care Provider] - Follow up as needed [facility] [Provider Group] - Follow up as needed
--- NOTE | 2019-07-16 09:31 | RADIOLOGY REPORT (SQ) ---
EXAM DESCRIPTION: KNEE RIGHT 4 VIEWS COMPLETED DATE/TIME: 07/16/2019 8:53 am REASON FOR STUDY: rt knee pain COMPARISON: None. NUMBER OF VIEWS: Four views. TECHNIQUE: AP, lateral, and both oblique radiographic images acquired of the right knee. LIMITATIONS: None. FINDINGS: MINERALIZATION: Normal. BONES: No acute fracture or dislocation. No worrisome bone lesions. JOINT: No knee joint effusion. Small intra-articular loose body along the posterior aspect of the kn ee joint best shown on lateral view. Mild patellofemoral and medial compartment joint space narrowin g. SOFT TISSUES: No soft tissue swelling. No radio-opaque foreign body. Small accessory ossification a long the inferior tip of the patella, well corticated. OTHER: No other significant finding. IMPRESSION: No acute fracture or malalignment TECHNICAL DOCUMENTATION: JOB ID: [id number] [employer]- All Rights Reserved Reading location - IP/workstation name: [email or web address]
[2019-07-16 09:46] VITALS: BP 150/98
== END 2019-07-16 09:58 | disposition home or self-care (01) ==
LOC: ER 06:09
DX: M25.561 Pain in right knee (principal); G89.29 Other chronic pain; I10 Essential (primary) hypertension; J45.909 Unspecified asthma, uncomplicated; E11.9 Type 2 diabetes mellitus without complications
CPT/HCPCS: 99283; 73564; L1830

== ENCOUNTER 2020-08-03 15:16 | Emergency (ER) | payer OTHER ==
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
--- NOTE | 2020-08-03 18:15 | RADIOLOGY REPORT (SQ) ---
EXAM DESCRIPTION: U/S EXTREMITY NONVASCULAR LTD IMAGES COMPLETED DATE/TIME: 08/03/2020 5:39 pm REASON FOR STUDY: right calf - possible hematoma? COMPARISON: None. TECHNIQUE: Dynamic and static grayscale images acquired of the localized site of clinical concern an d recorded on PACS. Additional selected color Doppler and spectral images recorded. SITE OF CONCERN: Right calf LIMITATIONS: None. FINDINGS: Sonographic imaging in the area of concern in the right calf shows a possible tear measuri ng 9 x 5.1 x 1 cm in the medial aspect of the gastrocnemius. IMPRESSION: Possible gastrocnemius tear. Consider MRI if clinically indicated. TECHNICAL DOCUMENTATION: JOB ID: [id number] 2010 [employer] All Rights Reserved Reading location - IP/workstation name: [email or web address]
[2020-08-03] MEDS ORDERED: HYDROCODONE/ACETAMINOPHEN 5-325 MG TABLET PO ONE (19:23)
[2020-08-03 19:48] VITALS: BP 142/85
== END 2020-08-03 19:45 | disposition home or self-care (01) ==
LOC: ER 15:16
DX: S86.112A Strain of other muscle(s) and tendon(s) of posterior muscle group at lower leg level, left leg, initial encounter (principal); M79.661 Pain in right lower leg; W19.XXXA Unspecified fall, initial encounter; Y93.01 Activity, walking, marching and hiking; I10 Essential (primary) hypertension; J45.909 Unspecified asthma, uncomplicated; E11.9 Type 2 diabetes mellitus without complications; Z88.8 Allergy status to other drugs, medicaments and biological substances
CPT/HCPCS: 76882; 99284

== ENCOUNTER 2020-08-21 17:19 | Emergency (ER) | payer OTHER ==
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
[2020-08-21] MEDS ORDERED: ACETAMINOPHEN 325 MG TABLET PO ONE (23:12)
[2020-08-21] MEDS ORDERED: ACETAMINOPHEN 325 MG TABLET ONE (23:32)
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
[2020-08-22] MEDS ORDERED: HYDROCODONE/ACETAMINOPHEN 5-325 MG (6 TAB/ER DISP) PO PRN (00:44)
[2020-08-22 01:37] VITALS: BP 146/85
== END 2020-08-22 01:35 | disposition home or self-care (01) ==
LOC: ER 17:19
DX: M25.561 Pain in right knee (principal); M25.562 Pain in left knee; M54.5 Low back pain; V49.40XA Driver injured in collision with unspecified motor vehicles in traffic accident, initial encounter; M51.36 Other intervertebral disc degeneration, lumbar region; M47.816 Spondylosis without myelopathy or radiculopathy, lumbar region; M17.0 Bilateral primary osteoarthritis of knee; M22.42 Chondromalacia patellae, left knee; Z88.8 Allergy status to other drugs, medicaments and biological substances
CPT/HCPCS: 72110; 99283